=== PATIENT | female | born 1990 | race Caucasian/White ===

== ENCOUNTER 2024-02-19 03:38 | Inpatient (IN) ==
[2024-02-19] MEDS ORDERED: Prochlorperazine 5 mg/ml 2 ml VIAL (10 mg) IV PRN (04:26)
[2024-02-19] MEDS ORDERED: Lidocaine 1% VIAL 10 MG/ML 30 ML VIAL INJ PRN (04:26)
[2024-02-19] MEDS ORDERED: Ondansetron 4 mg VIAL 2 MG/ML 2 ml VIAL IV PRN (04:29)
[2024-02-19 05:05] LABS: Urine Benzodiazepine Screen None Detected (None Detect); Urine Cannabinoids Screen None Detected (None Detect); Urine Opiates Screen None Detected (None Detect)
[2024-02-19] MEDS: Lactated Ringers 1000 ml BAG 1,000 ML IV ONE (08:30)
[2024-02-19 08:53] LABS: ABS Lymphocytes 1.2 10^3/uL (1.0-4.8); ABS Monocytes 0.4 10^3/uL (0.0-0.9); ABS Neutrophils 15.6 10^3/uL (1.5-7.6); Eosinophil % 0.1 %; Hematocrit 37.8 % (35-45); Lymphocyte % 6.7 %; Mean Corpuscular Hemoglobin 32.5 pg (27-33); Mean Corpuscular Hgb Conc 34.3 g/dL (31-36); Mean Corpuscular Volume 94.8 fL (80-97); Mean Platelet Volume 11.1 fL (7.5-11.2); Platelet Count 173 10^3/uL (150-450); Red Blood Count 3.99 10^6/uL (3.63-4.92); Red Cell Distribution Width 13.1 % (12-17); White Blood Count 17.2 10^3/uL (3.8-11.8)
[2024-02-19] MEDS: Lactated Ringers 1000 ml BAG 1,000 ML IV SCH (10:05)
[2024-02-19] MEDS: OBEPIDURAL (200 ML) 200 ML EPIDURAL ONE (11:07)
[2024-02-19 12:12] LABS: Urine Appearance Clear; Urine Bilirubin Negative (Negative); Urine Blood Negative (Negative); Urine Color Yellow; Urine Glucose Negative (Negative); Urine Ketones 1+ (Negative); Urine Nitrite Negative (Negative); Urine Protein 1+ (>=30 mg/dL) (Negative); Urine Urobilinogen Negative (Negative)
[2024-02-19 12:14] LABS: Urine Bacteria Absent /HPF (Absent); Urine Red Blood Cell Trace(0-2/hpf) /HPF (0-Trace); Urine Squamous Epithelial Cell Present /HPF (Absent); Urine White Blood Cell Trace(0-5/hpf) /HPF (0-Trace)
[2024-02-19] MEDS ORDERED: Sodium Citrate/Citric Acid LIQ 15 ML UDC PO PRN (13:15)
[2024-02-19] MEDS ORDERED: Phenylephrine 40 mcg/mL 10mL (400mcg) SYRINGE IV PUSH PRN ×2 (13:15)
[2024-02-19] MEDS: Famotidine IV 10 MG/ML 2 ml VIAL (20 mg) IV SLOW PU PRN (13:36)
[2024-02-19] MEDS: Oxytocin in LR 20,000 MILLI.UNIT/1,000 ML BAG IV SCH (15:04)
[2024-02-19] MEDS ORDERED: Glycerin ADULT 2.4 gm SUPP PR PRN (20:54)
[2024-02-19] MEDS ORDERED: Witch Hazel PAD JAR TOPICAL PRN (20:54)
[2024-02-19] MEDS ORDERED: Famotidine IV 10 MG/ML 2 ml VIAL (20 mg) IV SLOW PU SCH (21:00)
[2024-02-20 07:09] LABS: ABS Basophils 0.1 10^3/uL (0.0-0.1); ABS Lymphocytes 2.1 10^3/uL (1.0-4.8); ABS Monocytes 1.1 10^3/uL (0.0-0.9); ABS Neutrophils 13.2 10^3/uL (1.5-7.6); Eosinophil % 0.2 %; Hematocrit 32.8 % (35-45); Hemoglobin 11.4 g/dL (11.5-14.3); Lymphocyte % 12.4 %; Mean Corpuscular Hgb Conc 34.7 g/dL (31-36); Mean Corpuscular Volume 95.1 fL (80-97); Mean Platelet Volume 10.1 fL (7.5-11.2); Platelet Count 122 10^3/uL (150-450); Red Blood Count 3.45 10^6/uL (3.63-4.92); Red Cell Distribution Width 13.3 % (12-17); White Blood Count 16.5 10^3/uL (3.8-11.8)
[2024-02-20] MEDS: Lidocaine 1.5% EPI 1:200,000 30 ML SDV ONE (07:22)
[2024-02-20] MEDS: Buffered Lidocaine 1% SYRIN 1 ml INTRADERM ONE (07:22)
[2024-02-20] MEDS: Oxytocin in LR 20,000 MILLI.UNIT/1,000 ML BAG IV SCH (07:22)
[2024-02-20] MEDS: Dibucaine 1% OINT 28.35 GM TUBE PR PRN (13:44)
[2024-02-20] MEDS: OBEPIDURAL (200 ML) 200 ML EPIDURAL SCH (14:12)
[2024-02-20] MEDS: Lactated Ringers 1000 ml BAG 1,000 ML IV SCH (14:12)
[2024-02-20] MEDS: Lactated Ringers 1000 ml BAG 1,000 ML IV ONE (14:12)
[2024-02-20] MEDS: Lidocaine 2% JELLY 6 ML Topical TOPICAL ONE (14:13)
[2024-02-21 08:45] VITALS: BP 121/63
== END 2024-02-21 15:41 | disposition home or self-care (01) | DRG 807 ==
LOC: MCHOBOUT 03:38 → MCHOB 04:13
PROVIDERS: ADMIT Advanced Practice Midwife